=== PATIENT | female | born 1975 | race Caucasian/White ===

== ENCOUNTER 2025-01-21 18:10 | Emergency (ER) | payer BC, OTHER, SELFPAY ==
[2025-01-21 18:11] VITALS: BP 146/79; PULSE 79; RESP 16; TEMP 36.6; O2SAT 98; BMI 27.4
--- NOTE | 2025-01-21 18:37 | CTR_ITS ---
PROCEDURE INFORMATION: Exam: CT Head Without Contrast Exam date and time: 01/21/2025 7:12 PM Age: 50 years old Clinical indication: Other: New onset seizures; 1 min witnessed seizure by family, reports the PT walked out of [facility] and she twitched before continuing to picnic table and sitting down, PT twitched again and then starting have full body convulsions and he held her until the seizures stopped, TECHNIQUE: Imaging protocol: Computed tomography of the head without contrast. Radiation optimization: All CT scans at this facility use at least one of these dose optimization techniques: automated exposure control; mA and/or kV adjustment per patient size (includes targeted exams where dose is matched to clinical indication); or iterative reconstruction. COMPARISON: No relevant prior studies available. RADIATION DOSE METRICS: Total DLP (mGy-cm): 1061.39 FINDINGS: Brain: No acute infarction, hemorrhage, mass, or extra-axial fluid collection is identified. No midline shift. Cerebral ventricles: No hydrocephalus. Paranasal sinuses: Paranasal sinuses are grossly clear. Mastoid air cells: Mastoid air cells are grossly clear. Bones: Calvarium appears intact. Soft tissues: Unremarkable. CT/CT head wo con* [id number] IMPRESSION: No acute intracranial abnormality.
[2025-01-21 18:50] LABS: Hematocrit 38.7 % (36-47); Hemoglobin 13.70 g/dL (11.27-16.99); Mean Corpuscular HGB Conc 35.4 g/dL (30-55); Mean Corpuscular Hemoglobin 32.9 pg (27-33); Mean Corpuscular Volume 93.0 fl (85-98); Nucleated Red Blood Cells % 0 %; Platelet Count 166 10^3/cmm (157-399); Red Blood Count 4.16 10^6/uL (3.85-5.65); White Blood Count 6.15 10^3/uL (3.29-11.43)
[2025-01-21 18:55] LABS: Lactic Sepsis W/Reflex 3.4 mmol/L (0.5-2.2)
[2025-01-21 19:02] LABS: HCG, Serum Qual Negative (Negative)
--- NOTE | 2025-01-21 19:09 | W.ED.SEIZURE ---
HPI - Seizure General: Chief Complaint: Seizure Stated Complaint: SEIZURE Time Seen by Provider: 01/21/25 18:13 History of Present Illness: HPI Narrative: Patient came here from [place] to [place] with her . She has a one-time seizure in 2017 that was not treated with medication. Patient stated she arrived at the [place] where approximately 406. She does not recall talking to her son at 4:45 PM Initially, she was unpacking, and felt funny. She then stated that she was lightheaded. She went to go out the door of the [facility], and felt even more lightheaded. She remembers opening the door but having difficulty opening the door, getting down the stairs of the [facility], over to the [facility] table. This is the last of her memory. Her witnessed her talking to him a couple of minutes, then started having as shaking tonic-clonic seizure. There was no tongue biting, no incontinence. This lasted approximately 2 minutes. Patient's bear hugged her so she would not fall or have any injury. He stated he was within 1 foot from her when this occurred. She did not have any alcohol day. In fact she had just open a beer, took 1 sip, and then witnessed the tonic-clonic seizures. She does remember taking 1 sip of the beer. 911 was called. She has had no other issues since 2017 Selected Entries 01/21/25 18:11 ED Triage Comment 1 min witnessed se izure by family, h usband reports the pt walked out of [facility] and she twi tched [facility] and sitting do wn, pt twitched ag ain and then start ing have full body convulsions and h e held her until t he seizures stoppe d, pt was then on ground for 30-40 m in awaiting EMS ar jessica, jannet [facility] bernardo up until EMS arrival. Pt does n ot have seizure hx , no seizure meds, reports h e thinks she had a seizure about 8 y ears ago Associated symptoms: Deny chest pain, chills or fever(s) Related Data Previous Rx's ?Medication ?Instructions ?Recorded levetiracetam 500 mg tablet 500 mg PO BID 30 days #60 tabs 01/21/25 (Keppra) methocarbamol 750 mg tablet 750 mg PO Q8H PRN muscle spasm #30 01/21/25 tabs Allergies Allergy/AdvReac Type Severity Reaction Status Date / Time cetirizine (From [facility]) Allergy Unknown Verified 01/21/25 18:20 tramadol Allergy Unknown Verified 01/21/25 18:20 Review of Systems General: Reports: 10 or more systems reviewed and unremarkable except in HPI and below Const: Denies: fever(s) or chills Eyes: Denies: change in vision Card: Denies: chest pain or palpitations Resp: Denies: dyspnea or productive cough GI: Denies: abdominal pain, nausea or vomiting : Denies: flank pain or difficulty voiding Musc: Reports: back pain and extremity pain; Denies: neck pain Skin/Breast: Denies: rash or pruritus Neuro: Denies: headache(s) or numbness in extremities Psych: Denies: anxiety or depression Physical Exam Const: COMMON NORMALS: no acute distress, average body habitus, patient oriented x3, no limitations and alert ORIENTATION/CONSCIOUSNESS: Yes oriented to person and Yes oriented to time HENMT: COMMON NORMALS: atraumatic HEAD & SCALP: atraumatic Neck/C-Spine: COMMON NORMALS: full ROM, no lymphadenopathy, supple and no meningeal signs Lymph: LYMPHATIC: no lymphadenopathy noted Chest: COMMONS NORMALS: normal inspection of the chest and normal palpation of entire chest wall Resp: COMMON NORMALS: normal respiratory effort, No retractions and clear to auscultation bilaterally AUSCULTATION: clear to auscultation bilaterally Cardio: COMMON NORMALS: regular rate and regular rhythm RATE: regular rate RHYTHM: regular rhythm GI: COMMON NORMALS: Normal to inspection, nondistended, normoactive bowel sounds present, Soft to palpation and non-tender PALPATION: Yes Soft to palpation : COMMON NORMALS: Yes no CVA tenderness BLADDER/KIDNEY EXAM: Yes no CVA tenderness Back/Pelvis: COMMON NORMALS: no CVA tenderness Extremity: COMMON NORMALS: normal to inspection, full ROM and capillary refill normal Neuro: COMMON NORMALS: patient oriented x3, CN's II-XII intact bilaterally and moves all extremities SENSORIUM/ORIENTATION: Yes alert, Yes oriented to person, Yes oriented to time, No Orientation impaired and Yes somnolent MENINGEAL SIGNS: Yes no meningeal signs SPEECH: speech normal MOTOR EXAM: 5/5 motor strength present throughout Psych: COMMON NORMALS: mental status grossly normal, Normal thought process present and cooperative THOUGHT PROCESS: Normal thought process present Course Vital Signs: Vital signs: Vital Signs Temperature 98 F 01/21/25 18:11 Pulse Rate 71 01/21/25 21:51 Respiratory Rate 16 01/21/25 18:11 Blood Pressure 124/69 01/21/25 21:51 Pulse Oximetry 96 01/21/25 21:51 Oxygen Delivery Me thod Room Air 01/21/25 18:11 MDM - Seizure MDM Narrative Medical decision making narrative: Patient presents via EMS with seizure, witnessed by . History was consistent with seizure. Patient had a single seizure in 2017, and she did not require medication for this. This was a single event until today. She did have an aura, with not feeling right, and the dizziness, that worsened. Labs are consistent with seizure. She was loaded on Keppra, and placed on Keppra 500 mg p.o. twice daily. This can be changed to extended release Keppra. Workup with CT of the head was included that showed no acute abnormality. Urine analysis was ordered, however unable to locate the urine patient did void. Unable to further remark on this issue. All of the below was explained to the patient and her . Lab Data Attestation: I reviewed the patient's lab results. 01/21/25 18:30 01/21/25 18:30 Labs: Radiology Impressions Head CT 01/21/25 18:37 IMPRESSION: No acute intracranial abnormality. Laboratory Results WBC 6.15 10^3/uL (3.29-11.43) 01/21/25 18: RBC 4.16 10^6/uL (3.85-5.65) 01/21/25 18:30 Hgb 13.70 g/dL (11.27-16.99) 01/21/25 18: Hct 38.7 % (36-47) 01/21/25 18: MCV 93.0 fl (85-98) 01/21/25 18: MCH 32.9 pg (27-33) 01/21/25 18: MCHC 35.4 g/dL (30-55) 01/21/25 18: RDW 12.2 % (12.1-15.1) 01/21/25 18:30 Plt Count 166 10^3/cmm (157-399) 01/21/25 18: MPV 9.9 fL (7.4-10.4) 01/21/25 18: Neut % (Auto) 78.6 % 01/21/25 18:30 Lymph % (Auto) 13.8 % 01/21/25 18:30 Sunflower % (Auto) 5.2 % 01/21/25 18: Eos % (Auto) 1.5 % 01/21/25 18: Baso % (Auto) 0.7 % 01/21/25: Neut # (Auto) 4.84 10^3/uL (1.8-7.7) 01/21/25: Lymph # (Auto) 0.9 10^3/uL (0.8-4.8) 01/21/25 18: Sunflower # (Auto) 0.3 10^3/uL (0.2-0.9) 01/21/25 18: Eos # (Auto) 0.1 10^3/uL (0.0-0.8) 01/21/25 18: Baso # (Auto) 0.0 10^3/uL (0.0-0.1) 01/21/25: Nucleated RBC % (auto) 0 % 01/21/25: Nucleated RBCs # 0.0 /100WBC 01/21/25 18:30 Sodium 136 mmol/L (136-145) 01/21/25 18: Potassium 3.8 mmol/L (3.5-5.1) 01/21/25 18: Chloride 104 mmol/L (98-107) 01/21/25 18:30 Carbon Dioxide 19 mmol/L (22-29) L 01/21/25 18: Anion Gap 16.8 (5-19) 01/21/25 18: BUN 13 mg/dL (6-20) 01/21/25 18: Creatinine 0.8 mg/dL (0.5-0.9) 01/21/25 18: GFR Calculation 76.2 mL/min (90-130) L 01/21/25 18: Glucose 90 mg/dL (65-115) 01/21/25 18: Calculated Osmolality 282 mOsm/kg (285-295) L 01/21/25 18:30 Lactic Acid 3.4 mmol/L (0.5-2.2) H 01/21/25 18:30 Calcium 8.9 mg/dL (8.5-10.5) 01/21/25 18:30 Total Bilirubin 0.6 mg/dL (0.15-1.2) 01/21/25 18:30 AST 20 U/L (0-32) 01/21/25 18:30 ALT 26 U/L (0-33) 01/21/25 18:30 Alkaline Phosphatase 77 U/L (35-105) 01/21/25 18: Total Protein 6.9 g/dL (6.6-8.7) 01/21/25 18: Albumin 4.2 g/dL (3.5-5.2) 01/21/25 18: Globulin 2.7 g/dL (1.3-4.6) 01/21/25 18: Prolactin 53.90 ng/mL (4.8-23.3) H 01/21/25 18:30 HCG, Qual Negative (Negative) 01/21/25 18:30 All radiology interpretation(s) finalized by discharge Discharge Plan Discharge Patient Disposition: Home Clinical Impression: Epileptic seizure Condition: Stable Prescriptions: New levetiracetam [Keppra] 500 mg tablet 500 mg PO BID 30 Days Qty: 60 0RF methocarbamol 750 mg tablet 750 mg PO Q8H PRN (Reason: muscle spasm) Qty: 30 0RF Discharge Orders: Discharge ED (Routine); Ordered 01/21/25 Ordered By: Lizabeth Alvarado Discharge Diet: Usual diet Discharge Activity: Resume usual activity and Limit activity as instructed Patient Instructions: Epilepsy (ED), Patient Portal & [facility] Instructions Activity Restrictions/Additional Instructions: Per [place] state law: No driving for 6 months, no high-impact sports, no roller coasters, no swimming alone, no bathing alone. Case management here will make a referral for neurology in [place]. Please check with your primary as well because you will need your medications filled before 30 days. Follow-up in 1-3 weeks would be important. There are multiple tests that need to be done outpatient that are not done in ER: EEG, possibly MRI, possibly lumbar tap. For routine seizure workup, this is done outside the ER Usually keep people for reviewing urine analysis, however yours is a still pending. Will go ahead and discharge you. Start your medications in the morning. Locally, you chose to have them go to [facility]. They have been transmitted to them. You definitely have labs consistent with a seizure today. Thank you for choosing [facility] for your healthcare needs today. You have been screened and evaluated and felt safe for discharge. Health conditions do change or evolve sometimes and as such it is important that you follow up with your Primary Doctor to be re checked, 3-5 days is a general good time frame for follow up. You are always welcome to return to the ED for re assessment if your symptoms are worsening or you have new concerns Print Language: Nigerien Coding Level of Care Code ED Roof Bolter Helper for Jacquelin Philip
[2025-01-21 19:13] LABS: Alanine Aminotransferase 26 U/L (0-33); Albumin Level 4.2 g/dL (3.5-5.2); Alkaline Phosphatase 77 U/L (35-105); Anion Gap 16.8 (5-19); Aspartate Amino Transferase 20 U/L (0-32); Blood Urea Nitrogen 13 mg/dL (6-20); Calcium 8.9 mg/dL (8.5-10.5); Carbon Dioxide 19 mmol/L (22-29); Chloride 104 mmol/L (98-107); Creatinine Clr Calc Pharmacy 83.0572; Globulin 2.7 g/dL (1.3-4.6); Glucose 90 mg/dL (65-115); Osmolality Calculated 282 mOsm/kg (285-295); Potassium 3.8 mmol/L (3.5-5.1); Sodium 136 mmol/L (136-145); Total Protein 6.9 g/dL (6.6-8.7)
[2025-01-21] MEDS: levETIRAcetam 2,000 MG/200 ML PREMIX 400 MG IV (20:01)
[2025-01-21 20:28] LABS: Reflex Lactate Order REFLEX LACTIC ORDERD
[2025-01-21] MEDS: orphenadrine 30 mg/mL Inj 2 mL IVP (21:23)
[2025-01-21 21:51] VITALS: BP 124/69; PULSE 71; O2SAT 96
--- NOTE | 2025-01-22 09:11 | DCPLANNER ---
faxed outpatient neuo referral to [facility] [phone]
== END 2025-01-21 21:53 | disposition home or self-care (01) ==
PROVIDERS: Emergency Provider Physician Assistant
DX: G40.909 Epilepsy, unspecified, not intractable, without status epilepticus (principal)
CPT/HCPCS: 70450; 80053; 83605; 84146; 84703; 85025; 96365; 96375; 99285; J1953; J2360